=== PATIENT | male | born 1995 | race African-American/Black ===

== ENCOUNTER 2017-10-25 14:31 | Emergency (ER) | payer OTHER | END 2017-10-25 18:23 | disposition home or self-care (01) | LOC: M ED 14:31 | DX: S00.93XA Contusion of unspecified part of head, initial encounter (principal); S13.4XXA Sprain of ligaments of cervical spine, initial encounter; V49.40XA Driver injured in collision with unspecified motor vehicles in traffic accident, initial encounter; Y92.410 Unspecified street and highway as the place of occurrence of the external cause | CPT/HCPCS: 70450 ==

== ENCOUNTER 2017-12-11 16:26 | Emergency (ER) | payer OTHER | END 2017-12-11 21:53 | disposition home or self-care (01) | LOC: M ED 16:26 | DX: M22.2X1 Patellofemoral disorders, right knee (principal); M22.2X2 Patellofemoral disorders, left knee; M77.9 Enthesopathy, unspecified; M75.41 Impingement syndrome of right shoulder; Z82.69 Family history of other diseases of the musculoskeletal system and connective tissue | CPT/HCPCS: 73030 ==

== ENCOUNTER 2018-03-02 15:33 | Emergency (ER) | payer OTHER ==
[2018-03-02] MEDS: KETOROLAC TROMETHAMINE 10 MG TAB PO (16:39)
== END 2018-03-02 16:52 | disposition home or self-care (01) ==
LOC: M ED 15:33
DX: S33.5XXA Sprain of ligaments of lumbar spine, initial encounter (principal); W00.9XXA Unspecified fall due to ice and snow, initial encounter; Y92.89 Other specified places as the place of occurrence of the external cause; G89.29 Other chronic pain
CPT/HCPCS: 99283

== ENCOUNTER 2018-06-21 12:21 | Emergency (ER) | payer OTHER ==
[2018-06-21] MEDS: diazePAM 2 MG TAB PO (13:15)
[2018-06-21] MEDS: NORCO, ANEXSIA 5/325MG TABLET (HYDROcodone/ACETAMINOPHEN) PO (13:15)
== END 2018-06-21 15:28 | disposition home or self-care (01) ==
LOC: M ED 12:21
DX: M54.5 Low back pain (principal); G89.29 Other chronic pain; Z79.1 Long term (current) use of non-steroidal anti-inflammatories (NSAID); Z79.899 Other long term (current) drug therapy
CPT/HCPCS: 71046